=== PATIENT | female | born 1995 | race Two or more races ===

== ENCOUNTER 2024-12-16 10:28 | Emergency (ER) | payer MEDICAID, SELFPAY ==
--- NOTE | 2024-12-16 11:35 | PC.NURSE ---
Patient's boyfriend came to triage and upset about patient not being called back and other people being called back before patient, attempted to give handout to patient's boyfriend and explain process, however, patient's boyfriend walked back to sit down stating no, i didn't ask for it and i don't need it checked with E nurse Matthew states he will call her back shortly, per Security states patient eloped and told him that they were leaving, Yasemin Charge nurse made aware.
== END 2024-12-16 11:55 | disposition left against medical advice (07) ==
PROVIDERS: Emergency Provider Emergency Medicine
DX: Z53.21 Procedure and treatment not carried out due to patient leaving prior to being seen by health care provider (principal)